=== PATIENT | female | born 1975 | race Two or more races ===

== ENCOUNTER 2025-05-16 08:06 | Emergency (ER) | payer OTHER ==
[~2025-05-16] VITALS: Ht 179.1 cm; Wt 83.9 kg
[~2025-05-16 08:06] MED LIST: HYZAAR 50-12.51 EACH PO; LOSARTAN-HCTZ1 EAC2; METOPROLOL ER-1 EAC1 PO; SYNTHROID100 MCG; SYNTHROID100 MCG PO; TOPROL XL50 MG; [UNRECOGNIZED DRUG - OTHER] PO
[2025-05-16 09:01] VITALS: BP 122/82; O2SAT 99
[2025-05-16] MEDS ORDERED: ACETAMINOPHEN 500 MG GEL..CAP PO ONE (09:30)
[2025-05-16] MEDS ORDERED: FAMOTIDINE/PF 20 MG in 0.9 % SODIUM CHLORIDE 8 ML IV PUSH ONE (09:30)
[2025-05-16] MEDS ORDERED: KETOROLAC TROMETHAMINE 15 MG VIAL IU ONE (09:30)
[2025-05-16] MEDS ORDERED: 0.9 % SODIUM CHLORIDE 1,000 ML IV SCH (09:30)
[2025-05-16 11:17] LABS: BASO % 0.6 % (0.1-1.2); EOS # 0.04 (0.04-0.54); EOS % 0.5 % (0.7-7.0); LYMPH # 1.63 (1.18-3.74); LYMPH % 20.6 % (19.3-53.1); MEAN PLATELET VOLUME 9.50 fl (9.4-12.4); MONO # 0.46 (0.24-0.82); MONO % 5.8 % (4.7-12.5); NEUT # 5.69 (1.56-6.13); NEUT % 72.1 % (34.0-71.1); RED CELL DISTRIBUTION WIDTH 11.9 % (11.6-14.4)
[2025-05-16 11:38] LABS: URINE APPEARANCE Clear; URINE BILIRRUBIN Negative (NEGATIVE); URINE BLOOD Moderate; URINE COLOR Yellow; URINE GLUCOSE Negative (NEGATIVE); URINE KETONE Negative (NEGATIVE); URINE LEUKOCYTE Negative; URINE NITRATE Negative; URINE PROTEIN Negative (NEGATIVE); URINE UROBILINOGEN 0.2 E.U./dl
[2025-05-16 11:43] LABS: ALT/SGPT 33.0 U/L (12-78); AST/SGOT 16.0 U/L (15-37); BILIRUBIN TOTAL 0.79 mg/dL (0.3-1.2); BUN CREA RATIO 25.0 (7.0-25.0); CREATININE SERUM 0.48 mg/dL (0.55-1.02); GFR 135.81; GLOBULINA 3.6 G/DL (2.4-3.5); GLUCOSE FASTING 99.0 mg/dL (65-100); OSMOLALITY SERUM 277.0 MOSM/KG (275-295)
[2025-05-16 11:43] LABS: URINE BACTERIA 385.1 uL (0.0-1933); URINE EPITHELIAL CELLS 7.9 uL (0.0-38.8); URINE RBC 25.0 uL (0.0-20.8)
[2025-05-16 11:46] LABS: URINE CAST 0.00 uL (0.0-1.40); URINE WBC 0.7 uL (0.0-23.2)
[2025-05-16 11:47] LABS: INR 1.03
== END 2025-05-16 15:23 | disposition home or self-care (01) ==
LOC: ER 08:07
PROVIDERS: General Practice
DX: N93.8 Other specified abnormal uterine and vaginal bleeding (principal); I10 Essential (primary) hypertension; E03.8 Other specified hypothyroidism